=== PATIENT | female | born 1940 | race Caucasian/White ===

== ENCOUNTER 2016-03-07 18:43 | Observation (INO) ==
[2016-03-07] MEDS ORDERED: NS 500 ML IV ONE (18:47)
[2016-03-07] MEDS ORDERED: SOLU-MEDROL IV ONE (18:47)
[2016-03-07] MEDS ORDERED: LEVAQUIN 500 MG/D5W 100 ML IV SCH (19:00)
--- NOTE | 2016-03-07 19:44 | PROVIDER DOCUMENTATION ---
HPI-Abdominal Pain/GI Problem - General Chief Complaint: Abdominal Pain Stated Complaint: NOT EATING, N/V/D,ABNORMAL LABS Time Seen by Provider: 03/07/16 18:46 Source: patient Allergies/Adverse Reactions: Patient Allergies Allergy/AdvReac Type Severity Reaction Status Date / Time poison oak extract Allergy HIVES Verified 03/07/16 21:07 Home Medications: ATORVAstatin [Lipitor] 20 mg PO QHS 12/21/11 Metoprolol [Lopressor] 50 mg PO DAILY 12/21/11 Omeprazole [Prilosec] 20 mg PO BID 12/21/11 Gabapentin 300 mg PO BID 01/11/16 Levothyroxine [Synthroid] 88 microgm PO DAILY 01/11/16 Estrogens, Conjugated [Premarin] 0.9 mg PO QHS 01/12/16 Lisinopril 10 mg PO QHS 01/12/16 Calcium Carbonate/Vitamin D3 [Calcium 600 + Vit D 400 Softgl] 1 each PO DAILY Cyanocobalamin (Vitamin B-12) [Vitamin B-12] 500 mcg PO DAILY 03/07/16 Lactobac Cmb #3/Fos/Pantethine [Probiotic & Acidophilus Cap] 1 each PO DAILY 06/18 Linaclotide [Linzess] 1 each PO PRN PRN 03/07/16 - History of Present Illness-ABD Nature of Presenting Problems: 75 year old F presents to the ED with a cc of ABD cramping, nausea, vomiting, and diarrhea x5 days. PT states that she has not had anything to eat since Saturday. PT staets that she woke this morning feeling better. PT was seen by Dr. Deshpande this afternoon and received a CT scan which showed enteritis. PT sent to ED by Dr. Deshpande and then called Dr. Pantoja with report and instructions to admit. Abdominal Pain Onset Location: reports: generalized abdomen Quality of Pain: reports: cramping Severity in ED: reports: mild Onset/Duration: reports: 5 days ago Timing: reports: still present Activities at Onset: reports: none Associated Symptoms: reports: diarrhea, nausea, vomiting Bruising or Bleeding Gums?: No Similar Symptoms Previously?: No Recently seen or treated by another doctor?: Yes Review of Systems - Adult - REVIEW OF SYSTEMS - ADULT Constitutional: denies: chills, fever Eyes: reports: no symptoms reported Ears, Nose, Mouth & Throat: reports: no symptoms reported Cardiovascular: denies: chest pain, palpitations Respiratory: denies: cough, shortness of breath Gastrointestinal: reports: abdominal pain, diarrhea, nausea, vomiting Genitourinary: denies: dysuria, hematuria Musculoskeletal: denies: bone pain, muscle aches, muscle weakness Integumentary: reports: no symptoms reported Neurological: reports: no symptoms reported Psychiatric: reports: no symptoms reported Endocrine: reports: no symptoms reported Hematologic/Lymphatic: reports: no symptoms reported Allergic/Immunologic: reports: no symptoms reported All Other Systems: Reviewed and Negative Past History - Adult - PAST MEDICAL HISTORY-ADULT Review of Records: reports: Nursing Assessment Review, Medications Reviewed Major Childhood Illnesses: reports: denies history Cardiovascular: reports: HTN Gastrointestinal: reports: GERD Other Conditions: reports: other cancer (skin cancer, basal cell) - PRIOR SURGERIES/PROCEDURES Surgical/Procedure History: reports: appendectomy, cholecystectomy (2011), hysterectomy, tonsillectomy, other (skin cancer removed x 3) - IMMUNIZATION STATUS Childhood Immunizations: See Nurse Assessment Flu Vaccine: See Nurse Assessment - FAMILY HISTORY Family History: reviewed, not pertinent - SOCIAL HISTORY Smoking: non-smoker Substance Use: none/never Alcohol Use Frequency: never Physical Exam-General - PHYSICAL EXAM-ADULT Initial Vital Signs Reviewed: Yes - CONSTITUTIONAL General Appearance: appears well, alert, no apparent distress - RESPIRATORY Respiratory: chest non-tender, lungs clear, normal breath sounds - CARDIOVASCULAR Cardiovascular: normal peripheral pulses, regular rate, rhythm, no edema - GASTROINTESTINAL (ABDOMEN) Abdominal Exam: normal bowel sounds, soft, tenderness (generalized) - SKIN Integumentary: normal color, normal turgor, warm/dry - PSYCHIATRIC Psych/Mental Status: normal mood/affect, normal thought content, normal thought process, oriented x 3 Progress - PLAN OF CARE/RESULTS Progress/Plan/Lab Results: plan of care: admission Orders Category Date Time Status Admit - [facility] Routine AdmDCTranf 03/08/16 00:08 Ordered Activity - Up with Assistance ORDERED Care 03/08/16 00:08 Active Apply Mechanical Device [QM] ORDERED Care 03/08/16 00:08 Active DVT/PE Risk Assess/Protocol [QM] ORDERED Care 03/08/16 00:08 Active Intake and Output-Strict Q 8-HR ASSESS Care 03/08/16 00:08 Active Nursing- MD Consult Request ROUTINE Care 03/08/16 00:08 Active Update & Confirm Home Medicati ROUTINE Care 03/07/16 20:49 Active Vital Signs Order Q 8-HR ASSESS Care 03/08/16 00:08 Active Physician/Provider Consults Routine Cons 03/08/16 07:00 Ordered Clear Liquid Diet Diet 03/08/16 20:43 Active BASIC METABOLIC PANEL [CHEM] Routine Lab 03/08/16 06:00 Ordered CBC WITH DIFF [HEME] Routine Lab 03/08/16 06:00 Ordered TSH Routine Lab 03/08/16 06:00 Uncollected 0.9% Sodium Chloride Inj [Ns] 1,000 ml Med 03/08/16 00:08 Active IV 125 mls/hr 0.9% Sodium Chloride Inj [Ns] 500 ml Med 03/07/16 18:47 Discontinued IV 999 mls/hr Acetaminophen [Tylenol] Med 03/08/16 00:08 Active 650 mg PO Q6H PRN PRN Levofloxacin 500 mg/D5w [Levaquin 500 mg/D5w] 100 ml Med 03/07/16 19:00 Discontinued IV Q24H Methylprednisolone Sod Succ [Solu-Medrol] Med 03/07/16 18:47 Discontinued 40 mg IV NOW ONE Metronidazole 500 mg/Ns [Flagyl 500 mg/Ns] 100 ml Med 03/07/16 21:00 Active IV Q8H Ondansetron [Zofran] Med 03/08/16 00:08 Active 4 mg IV Q6H PRN PRN Telemetry [OM.EQ] Routine Oth 03/08/16 00:08 Active Transfer/Admit Order [TRANSFER] Routine Transfer 03/07/16 20:40 Completed Vital Signs - 24 hr 03/07/16 18:57 Temperature 97.5 F L Pulse Rate 77 Respiratory 18 Rate Blood Pressure 138/67 O2 Sat by Pulse 100 Oximetry Pt/family given results. Pt will be admitted to the hospitalist group. PT/ Family in agreement with plan of care. - CONSULTS/PCP/HOSPITALIST Notification #1 *Consult/PCP/Hospitalist*: Dr. Figueroa Time Discussed: 19:45 Consult Disposition: Will see in ED, Admit Departure - Departure Time of Disposition Order: 19:50 DIAGNOSIS: Enteritis, Nausea vomiting and diarrhea Disposition: ADMITTED INPATIENT 09 Certified Medical Emergency: Emergent Condition: Stable Attestation - Scribe Verification/Attestation Scribe:: Loren Small Acting as Scribe for:: Edu Pantoja Scribe documention review:: This chart was documented by a scribe and accurately reflects the service the provider performed and the decisions made by the provider. Physician Attestation - Physician Attestation I, the provider, attest to the following statement:: Edu Pantoja Physician documentation Attestation:: This documentation recorded by the scribe accurately reflects the service I personally performed and the decisions made by me.
[2016-03-07] MEDS: FLAGYL 500 MG/NS 100 ML IV SCH (21:40)
--- NOTE | 2016-03-07 22:14 | HISTORY AND PHYSICAL ---
PRIMARY CARE PROVIDER: Dr. Michi Gonsales. RN [facility]: Dr. Mona Deshpande. CHIEF COMPLAINT: Abnormal labs, fatigue, recent history of abdominal pain, nausea, vomiting, diarrhea, and poor oral intake. HISTORY OF PRESENT ILLNESS: Ms. Myrick is a 75-year-old female with a past medical history of gastroesophageal reflux disease, hypertension, gout, hypothyroidism, and a recent admission to the hospital for acute colitis. Since her last admission to the hospital in January of 2016, she did follow up outpatient with Dr. Deshpande. The patient reports that this Saturday, she began having abdominal pain. She reported it being crampy in nature, mainly in the upper quadrants of her abdomen. The patient reports that on Saturday she began having vomiting and started having diarrhea this morning. The patient states that due to her abdominal pain and the following nausea, vomiting, and diarrhea, that she has not really eaten or drank anything since Saturday. She did report that she was able to hold down 4 crackers and half a Mountain Dew today. The patient reports at this time that her abdominal pain has subsided and she has not had any further episodes of vomiting or diarrhea. The patient did have an appointment scheduled already today with Dr. Deshpande and, when she went into her office and informed Dr. Deshpande of her symptoms, she ordered her to have blood work and a CT scan performed here at [facility]. The blood work showed that the patient did have an acute kidney injury with her creatinine being elevated at 1.7 and a GFR of 29. A CT scan was also performed which showed that the patient had enteritis per the radiologist. Due to this, the patient was sent to the hospital for admission by Dr. Deshpande. The patient does report being tired also and having an intermittent headache though, other than this, reports no other symptoms besides what was previously mentioned. She denies any dizziness, lightheadedness, chest pain, shortness of breath, dysuria or urinary frequency. She denies any pain, numbness or tingling in her extremities. At this time, we will admit the patient for further treatment and evaluation of her enteritis, volume depletion, and acute kidney injury. REVIEW OF SYSTEMS: A 10-point review of systems was conducted with the patient and all are negative except for pertinent positives mentioned above in HPI. PAST MEDICAL HISTORY: 1. Basal cell skin cancer to her right forearm, right cheek, and left temporal area. 2. Gastroesophageal reflux disease. 3. Hypertension. 4. Gout. 5. Hypothyroidism. 6. Recent admission to the hospital for colitis. PAST SURGICAL HISTORY: 1. Partial hysterectomy. 2. Cholecystectomy. 3. Tonsillectomy. 4. Removal of basal cell skin cancer lesions on her right forearm, right cheek, and left temporal area. SOCIAL HISTORY: The patient denies any past or present history of tobacco, alcohol or illicit drug use. Ms. Myrick reports that she did recently get approximately 6 years ago and that her name is Domitila Myrick. She previously went by Domitila Szymanski, though her medical record number is the same for both of these names. FAMILY HISTORY: Negative for any heart disease, lung disease, diabetes, stroke, or cancers. ALLERGIES: The patient reports allergies to poison oak extract. HOME MEDICATIONS: 1. Prilosec 20 mg p.o. b.i.d. 2. Lopressor 50 mg p.o. daily. 3. Lisinopril 10 mg p.o. at nighttime. 4. Linzess 1 p.o. p.r.n. 5. Synthroid 88 mcg p.o. daily. 6. Gabapentin 300 mg p.o. b.i.d. 7. Premarin 0.9 mg p.o. at nighttime. 8. Lipitor 20 mg p.o. at nighttime. DIAGNOSTIC DATA AND LABORATORY RESULTS: White blood cell count 10.5, hemoglobin 11.9, hematocrit 35.8, platelet count 248. ESR 27. Sodium 137, potassium 3.6, chloride 97, bicarb 25, BUN 19, creatinine 1.7, GFR 29, glucose 97, calcium 9, magnesium 1.6. Liver function tests were within normal limits. C reactive protein was 10.46. Amylase 110, lipase 18. Urinalysis obtained via clean catch was positive only for trace white blood cells and 1+ bacteria. It was negative for ketones, blood, nitrites, or glucose. CT abdomen and pelvis showed colitis per the radiologist. Pending labs at this time are stool studies. The patient at this time denies any bloody or black tarry stools. PHYSICAL EXAMINATION: VITAL SIGNS: Temperature 97.5. Heart rate 77. Respirations 18. Blood pressure 138/67. Oxygen saturation is 100% on room air. GENERAL: The patient is a very pleasant 75-year-old female. She is resting comfortably in the ER stretcher, was sitting up. She is awake, alert, and able to answer all questions appropriately. HEENT: Head is atraumatic, normocephalic. Pupils are equal, round, reactive to light, 3 mm bilaterally. Oral mucosa is moist. Oropharynx is clear. NECK: Supple. Trachea midline. CARDIOVASCULAR: Normal S1, S2. No murmurs, gallops or rubs appreciated. Regular rate and rhythm. PULMONARY: The patient has symmetrical chest expansion bilaterally. Lungs sounds were clear to auscultation bilaterally in full patel. ABDOMEN: Soft, nondistended. The patient did report tenderness upon palpation in the right and left upper quadrants, though no rebound tenderness noted. Bowel sounds present in all four quadrants and normoactive. EXTREMITIES: No cyanosis or clubbing noted. The patient did appear to have some slightly swelling noted to her bilateral lower extremities just around her ankles at this time, but this was nonpitting. Pulse, motor and sensory intact in all extremities. Pedal pulses were 3+ bilaterally. INTEGUMENTARY: The patient's skin is pink, warm, dry, and intact. No lesions or sores noted. The patient did have some decreased skin turgor noted upon examination. NEUROLOGIC: Patient alert and oriented x3. Cranial nerves II through XII are grossly intact. ASSESSMENT AND PLAN: 1. Enteritis. For this, we will place the patient on a clear liquid diet. We will provide her with nausea medicine as well as IV fluid hydration. We will go ahead and cover her with Flagyl 500 mg IV every 8 hours. We have placed a consult with Dr. Deshpande who is familiar with the patient and will await her evaluation and further recommendations. 2. Nausea, vomiting, diarrhea. The patient's vomiting has subsided at this time, though we will give her Zofran as needed for nausea. We have informed the patient that we need to obtain a stool sample for stool studies and will await these pending labs and continue to follow. 3. Acute kidney injury. This is likely secondary to the patient's poor oral intake, nausea, vomiting, and diarrhea. The patient does also take lisinopril. This could have contributed to this along with her other reported symptoms. At this time, we will likely adjust her lisinopril dosage. She will receive a 1 L of normal saline bolus in the ER, and we will continue normal saline at 125 mL per hour and continue to follow this very closely. Renal dose medications as necessary. 4. Fluid volume depletion. We will continue with treatment as mentioned in #3 and continue to follow. 5. Hypertension. Will continue with her home medications of metoprolol and lisinopril, likely reducing the lisinopril dosage given her renal function at this time. 6. Hypothyroidism. Will continue her levothyroxine and have ordered a TSH to be drawn in the morning. The patient will be placed on the medical floor with telemetry. She will have vital signs every 8 hours. DVT prophylaxis will be provided with SCDs. Will do strict intake and output. She will be on a clear liquid diet. We will repeat a CBC and a BMP in the morning. Further orders and recommendations pending hospital course, diagnostic studies, and physician evaluation. Dictated by ISI Garcia for Jamar Figueroa MD
[2016-03-08] MEDS ORDERED: TYLENOL PO PRN (00:08)
[2016-03-08] MEDS ORDERED: ZOFRAN IV PRN (00:08)
[2016-03-08] MEDS: NS 1,000 ML IV SCH ×2 (00:15→09:33)
[2016-03-08] MEDS: FLAGYL 500 MG/NS 100 ML IV SCH ×3 (05:11→20:23)
[2016-03-08 06:17] LABS: MANUAL DIFF NEEDED? NO
[2016-03-08 06:19] LABS: EOS# 0.01 X1000 (0.0-0.7); EOS% 0.3 % (0.0-10.0); HEMATOCRIT 32.4 % (37.0-47.0); HEMOGLOBIN 10.6 g/dL (12.0-16.0); LYMPH# 0.81 X1000 (1.2-3.4); MCHC 32.7 g/dL (33-37); MCV 91.8 FL (81-99); MONO# 0.06 X1000 (0.11-0.59); MONO% 1.6 % (1.7-9.3); MPV 10.7 FL (7.4-10.4); NEUT% 77.1 % (42.2-75.2); PLT 206 X1000 (130-400); RBC 3.53 XMIL (4.2-5.4)
[2016-03-08 06:31] LABS: CALCIUM 8.3 mg/dL (8.8-10.2); POTASSIUM 3.9 mmol/L (3.5-5.1)
[2016-03-08] MEDS ORDERED: LEVAQUIN 500 MG/D5W 100 ML IV ONE (14:48)
[2016-03-08] MEDS ORDERED: PHENERGAN IV PRN (14:49)
[2016-03-08] MEDS ORDERED: SODIUM CHLORIDE 0.9% INJ PRN (14:49)
[2016-03-08] MEDS: PRILOSEC PO SCH (15:22)
--- NOTE | 2016-03-08 17:23 | PROGRESS NOTE ---
DATE: 03/08/2016 SUBJECTIVE: This patient states that she feels much better. She is still having loose stools, nonbloody. She is not complaining about abdominal pain, nausea, vomiting, fever, or chills. She is tolerating p.o. OBJECTIVE: Vital Signs: Temperature 97.8 degrees, pulse 73, respiratory rate 18, blood pressure 154/52, O2 saturation 99 on room air. HEENT: Head normocephalic. No trauma. PERRLA. Neck: Supple. No JVD. No masses. Central trachea. Chest: Clear to auscultation. No wheezing. No rales. Cardiovascular: RRR. No murmurs. No gallops. No rubs. Abdomen: Soft, nontender, nondistended. No hepatosplenomegaly. Positive bowel sounds. Extremities: No edema. No clubbing. No cyanosis. Neurological: The patient is alert and oriented x3. No focal neurological deficits. LABORATORY: WBC 3.8, hemoglobin 10.6, hematocrit 32.4, platelets 206,000. Sodium 137, potassium 3.9, chloride 100, bicarbonate 25, BUN 15, creatinine 1.4, glucose 149, calcium 8.9. ASSESSMENT AND PLAN: 1. Enteritis. Dr. Deshpande evaluated this patient. This patient is on a soft diet at this moment. We will continue with metronidazole IV q.8 hours. This patient is improving. We will continue to monitor. 2. Nausea and vomiting, improved. This patient is not complaining of nausea or vomiting at this moment. We will continue with p.r.n. medication. 3. Acute kidney injury. I checked her lab work and it looks like this is her baseline. We will continue to monitor. 4. Fluid volume depletion. This patient does not look dehydrated at this moment. Continue with IV fluids and monitoring. 5. Hypertension. We will continue with her home medications, metoprolol and lisinopril. 6. Hypothyroidism. We will continue with levothyroxine. Overall, this patient is doing much better. I talked to Dr. Deshpande and she told me that if this patient is doing good in the morning I am going to be able to send her home with home medications. This patient has no complaints at this moment.
[2016-03-09] MEDS: FLAGYL 500 MG/NS 100 ML IV SCH ×2 (05:59→13:13)
[2016-03-09] MEDS: PRILOSEC PO SCH (06:00)
[2016-03-09 07:01] LABS: MANUAL DIFF NEEDED? NO
[2016-03-09 07:19] LABS: BASO% 0.2 % (0.0-0.8); EOS# 0.04 X1000 (0.0-0.7); EOS% 0.7 % (0.0-10.0); HEMATOCRIT 29.7 % (37.0-47.0); HEMOGLOBIN 9.5 g/dL (12.0-16.0); LYMPH% 28.7 % (20.5-51.1); MCH 29.8 PG (27-31); MCV 93.1 FL (81-99); MONO# 0.36 X1000 (0.11-0.59); MONO% 6.5 % (1.7-9.3); MPV 11.1 FL (7.4-10.4); NEUT% 63.9 % (42.2-75.2); PLT 169 X1000 (130-400); RBC 3.19 XMIL (4.2-5.4)
[2016-03-09 07:54] LABS: CALCIUM 7.9 mg/dL (8.8-10.2); POTASSIUM 3.5 mmol/L (3.5-5.1)
[2016-03-09] MEDS: CULTURELLE PO SCH ×2 (08:36→09:10)
[2016-03-09] MEDS: CALTRATE 600 + D PO SCH ×2 (08:36→09:09)
[2016-03-09] MEDS ORDERED: SOLU-MEDROL IV SCH (08:45)
[2016-03-09 08:55] VITALS: BP 127/52
--- NOTE | 2016-03-09 13:35 | CONSULTATION ---
DATE OF CONSULTATION: 03/08/2016 REFERRING PHYSICIAN: Poli Gonsales MD. PRIMARY HOSPITALIST: Fausto Delacruz MD. CHIEF COMPLAINT: 1. Left lower quadrant pain. 2. Diarrhea. 3. Anorexia. 4. Rectal bleeding. 5. Enteritis on CT scan. 6. Nausea with vomiting. 7. Volume depletion. HISTORY OF PRESENT ILLNESS: The patient is a 75-year-old, white female, who was previously admitted in January 2016 with acute descending and sigmoid colon colitis. She received 10 days of antibiotics for presumed infectious colitis with interval improvement, although she reports not returning to normal. Over the next 4-6 weeks, she had progressive increase in symptoms. Approximately 2 weeks prior to clinic, she developed mid abdominal pain, diarrhea, anorexia and weakness that became progressive over the last 2 weeks. She presented to the office with failure to thrive and the above symptoms. She was referred to the hospital for a CT scan which showed interval improvement in the left-sided colitis, but new onset of enteritis, which is worrisome for inflammatory bowel disease. She was also noted to have leukocytosis and acute kidney injury. She was admitted for IV antibiotics, evaluation of the kidneys and treatment of her colitis and enteritis. We are asked to participate in her care. PAST MEDICAL HISTORY: 1. Acute colitis in January 2016. 2. Hypertension. 3. GERD. 4. Hyperlipidemia. 5. Anxiety. 6. Hypokalemia. 7. Hypothyroidism. 8. Gout. 9. Chronic abdominal pain. 10. Basal cell skin cancer status post removal. 11. Obesity. PAST SURGICAL HISTORY: 1. Cholecystectomy. 2. Total abdominal hysterectomy. 3. Tonsillectomy. 4. Basal cell skin cancer removal. MEDICATION ALLERGIES: None, however, she is allergic to poison oak. HOME MEDICATIONS: 1. Prilosec. 2. Lopressor. 3. Lisinopril. 4. Synthroid. 5. Probiotics 6. Gabapentin. 7. Vitamin B12. 8. Calcium with vitamin D. 9. Lipitor. SOCIAL HISTORY: Negative for alcohol, tobacco or recreational drug use. She has been for 6 years. However, her medical records are under the name of Domitila Ann Marie Szymanski. She recently changed her medical records to Domitila Ann Marie Myrick. PHYSICAL EXAMINATION: General: On exam, she is in no acute distress. Vital Signs: Her blood pressure is 156/58, pulse is 60, respiration 14, temperature 97.8. Her height is 5 feet 4 inches tall. Her weight is 151 pounds. HEENT: Unremarkable. Pulmonary exam: Her lungs are clear to auscultation. Cardiovascular: She has regular rate and rhythm with no gallops or rubs. Abdominal Exam: Reveals normoactive bowel sounds. The abdomen is soft and nontender. However, in clinic, she had periumbilical tenderness. Extremities: Bilaterally are negative for cyanosis, clubbing, or edema. OBJECTIVE DATA: Reveals a hemoglobin of 10.6 with hematocrit of 32.4 and a white count of 3.85 with 206,000 platelets. Sodium is 137, potassium 3.9, chloride 100, CO2 of 25, BUN 15, creatinine 1.4 with a glucose of 149 and calcium 8.3. IMPRESSION: 1. Enteritis. 2. Recent history of acute colitis. 3. Acute kidney injury. 4. Diarrhea. 5. Nausea with vomiting. RECOMMENDATION: 1. I would begin IV Levaquin and Flagyl for 10 days. Please check stool studies. If there is evidence of infection, I will treat that. If they are negative, I would begin Solu-Medrol as her clinical presentation is worrisome for inflammatory bowel disease. 2. Please check an IBD profile and stool lactoferrin. 3. Please monitor daily CRP. 4. Please use Phenergan for nausea with vomiting as there is a drug interaction between Levaquin and Zofran. 5. Have been on clear liquid diet and advance as tolerated. 6. Once she is tolerating her diet, we will continue with outpatient management. 7. We will have the patient return to clinic in 2 weeks as previously scheduled.
[2016-03-09] MEDS ORDERED: FLAGYL PO SCH (15:00)
[2016-03-10] MEDS ORDERED: LEVAQUIN PO SCH (09:00)
[2016-03-10] MEDS ORDERED: PREDNISONE PO SCH (09:00)
--- NOTE | 2016-03-10 11:26 | DISCHARGE SUMMARY ---
ADMISSION DATE: 03/07/2016 DISCHARGE DATE: 03/09/2016 CONSULTATION: Dr. Mona Deshpande. DISCHARGE DIAGNOSES: 1. Enteritis. Patient going home on oral antibiotics. 2. Nausea and vomiting, improved. 3. Acute kidney injury. Patient is back at baseline and stable. 4. Fluid volume complete depletion, improved. 5. Hypertension, stable. 6. Hypothyroidism on levothyroxine. HOSPITAL COURSE: Ms. Myrick is a 75-year-old female with past medical history of GERD, hypertension, gout, hypothyroidism and recent admission to the hospital for acute colitis. Since her last admission to the hospital in January of 2016, she did not follow up outpatient with Dr. Deshpande. Patient reports this past Saturday she had been having abdominal pain. She reported it being crampy in nature, mild in the upper quadrants of her abdomen, and on Saturday she began having vomiting and diarrhea. The patient kept her appointment with Dr. Deshpande. She informed her of these symptoms. Dr. Deshpande ordered her to have blood work and a CT scan performed at [facility]. The blood work showed that the patient did have acute kidney injury with her creatinine being elevated at 1.[address] performed did show enteritis per the radiologist, and the patient was sent to the hospital for admission per Dr. Deshpande. She was admitted for enteritis, fluid volume depletion, and acute kidney injury. She was placed on a clear liquid diet, given antiemetics, placed on Flagyl IV. Consulted Dr. Deshpande. Started on IV fluids. Patient was advanced to a GI soft diet. She tolerated that well. She did state that she was feeling much better. Still having some loose stools that are nonbloody. No complaints of abdominal pain, nausea or vomiting. No fever, no chills. She has been tolerating p.o. She is appropriate for discharge today. VITAL SIGNS AT TIME OF DISCHARGE: Temperature is 97.9 degrees, heart rate 59, respirations 17, blood pressure is 127/52, O2 is 98% on room air. DISCHARGE DIET: GI, soft, advance as tolerated. DISCHARGE MEDICATIONS: 1. Lipitor 20 mg p.o. at bedtime. 2. Lopressor 50 mg p.o. daily. 3. Prilosec 20 mg p.o. b.i.d. 4. Gabapentin 300 mg p.o. b.i.d. 5. Lisinopril 10 mg p.o. at bedtime. 6. Estrogens conjugated 0.9 mg p.o. at bedtime. 7. Synthroid 88 mcg p.o. daily. 8. Linzess 1 each p.o. p.r.n. 9. Calcium carbonate vitamin 1 each p.o. daily. 10. Vitamin B 12 500 mcg p.o. daily. 11. Lactobacillus 1 each p.o. daily. 12. Flagyl 500 mg p.o. q. 8 hours. 13. Levaquin 500 mg p.o. daily. 14. Prednisone 40 mg p.o. daily. FOLLOWUP: The patient is being discharged home. She will follow up with Dr. Gonsales in 1 week. She will follow up with Dr. Deshpande in 2 weeks. Patient can return to the ED for new or worsening of symptoms. DISCHARGE TIME: 30 minutes. Dictated by ISI Angeles for Fausto Delacruz MD
== END 2016-03-09 14:35 | disposition home or self-care (01) ==
LOC: ED 18:43 → EDIPHOLD 22:29 → 3N 03-08 15:50
PROVIDERS: ATTEND Internal Medicine
DX: K52.9 Noninfective gastroenteritis and colitis, unspecified (principal); E86.9 Volume depletion, unspecified; N17.9 Acute kidney failure, unspecified; E87.6 Hypokalemia; R19.7 Diarrhea, unspecified; R11.2 Nausea with vomiting, unspecified; I10 Essential (primary) hypertension; E03.9 Hypothyroidism, unspecified; E78.5 Hyperlipidemia, unspecified; E83.51 Hypocalcemia; E66.9 Obesity, unspecified; Z68.25 Body mass index [BMI] 25.0-25.9, adult; K21.9 Gastro-esophageal reflux disease without esophagitis; M10.9 Gout, unspecified; F41.9 Anxiety disorder, unspecified; G89.29 Other chronic pain; R53.83 Other fatigue; R10.32 Left lower quadrant pain; R53.1 Weakness; R10.84 Generalized abdominal pain; Z79.899 Other long term (current) drug therapy; Z85.828 Personal history of other malignant neoplasm of skin; Z79.890 Hormone replacement therapy; D72.829 Elevated white blood cell count, unspecified
CPT/HCPCS: 80048; 84443; 85025; 86140; 86255; 86671; 87045; 87046; 87324; 89055; 96365; 96366; 96375; 96376; G0378; J2920; J7030; J7040; S0030